=== PATIENT | female | born 1970 | race Caucasian/White ===

== ENCOUNTER 2016-05-11 16:42 | Inpatient (IN) | payer BC ==
--- NOTE | ~2016-05-11 | CN ---
Consultation Report [facility] [address] [place]. [address] NAME: JONAS ZHU : 74 STATUS : ADM IN PAT#: [id number] AGE: 46 ADM/REG DATE : 05/11/16 MR#: [id number] REPORT SERV DATE: 05/14/16 DICTATED BY: AKBAR ANTONIO DATE: 05/13/16 REPORT STATUS : Draft TRANSCRIBED BY: MODMars DATE: 05/13/16 DATE OF CONSULTATION: 05/13/2016 REQUESTING PHYSICIAN: Dr. Maxwell CHIEF COMPLAINT: Left forearm abscess. HISTORY OF PRESENT ILLNESS: A 46-year-old vpayv-[id number] white female, who has had a 3- week history of IV cocaine use she denies prior to that point. She has been going through a major situational depression, and she has turned to drugs for relief. She says she had difficulty finding veins, has used both arms but friend was able to find a vein about on Friday night in the left forearm, by Friday she was having swelling in the left arm. She came into the hospital. When she had a dizzy episode, she was admitted to Dr. Maxwell's service. Initially placed on vancomycin but that has been switched to Ancef and clindamycin, then changed again to Unasyn. The left forearm abscess is now developed from the original cellulitis. Of note, she has drug allergies to Keflex and sulfa which she reports difficulty breathing and face swelling. PAST MEDICAL HISTORY: Allergies to sulfa and Keflex. PAST SURGERIES: Breast augmentation, abdominoplasty, bladder sling, medical history of anxiety and depression. MEDICATIONS: Medications upon admission as per the home med list which include aspirin, Benadryl, doxycycline for acne, Prozac, and Advil. 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 Smokes less than half pack per day. Drinks alcohol rarely. Recent IV drug abuse as described above. PHYSICAL EXAMINATION: GENERAL: Shows a pleasant, cooperative, white female. HEENT: Normocephalic. Atraumatic. CHEST: Clear to auscultation. HEART: Regular rate and rhythm. ABDOMEN: Soft, nontender. EXTREMITIES: On the left forearm, she has a large volar abscess with surrounding cellulitis, but she can fully flex, fully extend the fingers, and flex in the elbow. On the right forearm, she has some superficial bruising consistent with multiple attempts at drug injections but no obvious abscess. REVIEW OF SYSTEMS: Positive for intermittent hypertension, positive for anxiety, positive for depression, positive for IV drug abuse. Denies history of heart disease, kidney disease, or liver disease. Consultation Report [place] [id number] [place]. [address] NAME: JONAS ZHU : 74 STATUS : ADM [facility]#: [id number] AGE: 46 ADM/REG DATE : 05/11/16 MR#: [id number] REPORT SERV DATE: 05/14/16 DICTATED BY: AKBAR ANTONIO DATE: 05/13/16 REPORT STATUS : Draft TRANSCRIBED BY: JESÚS DATE: 05/13/16 IMPRESSION: Left forearm abscess due to IV drug abuse with multiple drug allergies. PLAN: We will plan to take her to the operating room tomorrow for [place] of the left forearm possible Vac-Pac. We will also plan to get ID consult to help manage with all the different antibiotic allergies. MELBA/JESÚS Akbar Antonio M.D. / [id number] CC: Ulises Maxwell M.D.
--- NOTE | ~2016-05-11 | OP ---
Record Of Operation [facility] [address] [place]. [address] NAME: JONAS ZHU : 74 STATUS : ADM IN [facility]#: [id number] AGE: 46 ADM/REG DATE : 05/11/16 MR#: [id number] REPORT SERV DATE: 05/14/16 DICTATED BY: AKBAR ANTONIO DATE: 05/14/16 REPORT STATUS : Draft TRANSCRIBED BY: MODL DATE: 05/14/16 DATE OF PROCEDURE: 05/14/2016 PREOPERATIVE DIAGNOSIS: Left forearm abscess. POSTOPERATIVE DIAGNOSIS: Left forearm abscess. OPERATION PERFORMED: Irrigation and debridement of left forearm abscess and drain placement. SURGEON: Akbar Antonio M.D. TANK FARM OPERATOR: Mike Núñez. ANESTHESIA: General. TOURNIQUET TIME: 9 minutes. DRAINS: Hemovac x1. INDICATION FOR OPERATION: Please refer to my consult note. OPERATIVE FINDINGS: There is purulence in subcutaneous fat, no muscular fascia involvement was present. Thorough irrigation was performed with Pulsavac. I did not feel that the VAC pack necessary, but we did place a Hemovac drain which was removed on the floor. PROCEDURE IN DETAIL: The patient was taken to the operating room and placed on the operating table in supine position. Successful general anesthesia was given by the anesthesiologist. No extra antibiotics were given as she has just received vancomycin dose on the floor. Tourniquet was applied to left arm and secured with Steri-Drape. The left arm was then prepped with Betadine and draped in sterile routine fashion. Arm was elevated for five minute and tourniquet was inflated to 250 mmHg without exsanguination. A longitudinal approximately 7 cm incision was made over the volar aspect of the forearm, centered on the abscess. Dissection was carried down through the skin and subcutaneous tissue. Purulent fluid was obtained. This was cultured. Yankauer suction was then used to suck out the remaining purulence, some necrotic fat was then debrided with the tenotomy scissors. Finger dissection was performed to make sure there was no loculations present. The wound was then irrigated with 3 L normal saline solution with the Pulsavac irrigation system. A medium Hemovac drain was placed, then brought out distally. The tourniquet was let down. Hemostasis was good. The wound was closed with 3-0 Prolene mattress sutures. Sterile compressive dressing was applied. The drain was hooked up to the Hemovac suction and was taken to the recovery room in satisfactory condition. She tolerated the procedure well. DISPOSITION: We will plan to pull the drain on the floor in 24 to 48 hours. Infectious Disease consult is pending. Record Of Operation [place] [address] [address] NAME: JONAS ZHU : 74 STATUS : ADM IN [facility]#: [id number] AGE: 46 ADM/REG DATE : 05/11/16 MR#: [id number] REPORT SERV DATE: 05/14/16 DICTATED BY: AKBAR ANTONIO DATE: 05/14/16 REPORT STATUS : Draft TRANSCRIBED BY: JESÚS DATE: 05/14/16 MELBA/JESÚS Akbar Antonio M.D. / [id number] CC: Ben Alonzo M.D.
--- NOTE | ~2016-05-11 | DS ---
Discharge Summary [place] [address] [place]. [address] NAME: JONAS ZHU : 74 STATUS : DIS IN PAT#: [id number] AGE: 46 ADM/REG DATE : 05/11/16 MR#: [id number] REPORT SERV DATE: 05/21/16 DICTATED BY: ETHEL ALONZO DATE: 05/17/16 REPORT STATUS : Draft TRANSCRIBED BY: MODL DATE: 05/17/16 ADMISSION DATE: 05/11/2016 DISCHARGE DATE: 05/17/2016 DISCHARGE DIAGNOSES: 1. Methicillin-sensitive Staph aureus left arm abscess secondary to IV cocaine injection. 2. Uncontrolled pain associated with #1. 3. Uncontrolled hypertension. 4. Uncontrolled depression. 5. Uncontrolled anxiety. 6. Acute kidney injury, resolved. 7. Right forearm IV site thrombosis related to attempted cocaine injection thought to be sterile thrombophlebitis. OPERATIONS AND PROCEDURES: Irrigation and debridement of left forearm abscess and drain placement 05/14/2016, Dr. Hector Antonio. PRESENT ILLNESS: This is a 46-year-old white female who was triaged in the emergency room on 05/11/2016 at 1672 hours with complaints of swelling and redness in her arms after cocaine injection. Her admission vital signs were blood pressure 175/93, temp 98.4, pulse 104, respirations 20, and O2 saturation 100%. After evaluation in the emergency room, her diagnoses were cellulitis of left arm, IV drug abuse, and anxiety. She was referred to the Hospitalist Service. She was seen by Dr. Torrie Felder, admitted as described on admission history and physical examination. ADDITIONAL HISTORY: Per Dr. Felder. PHYSICAL EXAMINATION: Per Dr. Felder. ADMISSION LABORATORY: Per Dr. Felder. HOSPITAL COURSE: She was admitted by Dr. Felder with: 1. Left arm site cellulitis secondary to IV cocaine injection. 2. Bilateral breast cellulitis secondary to IV injection. 3. IV drug use. 4. Hypertension. 5. Severe anxiety disorder. 6. Major depression. She was admitted to [address] [place] [address]. Cultures were obtained. She was started on IV vancomycin. Her hospitalist care was assumed by Dr. Maxwell. On 05/13/2016, Dr. Maxwell thought she was developing a left arm abscess. Hand consultation was obtained, and that she was seen by Dr. Hector Antonio. His impression was left forearm abscess due to IV drug abuse with multiple drug allergies. He felt she should go to the OR Discharge Summary [place] [address] [place]. [address] NAME: JONAS ZHU : 74 STATUS : DIS IN PAT#: [id number] AGE: 46 ADM/REG DATE : 05/11/16 MR#: [id number] REPORT SERV DATE: 05/21/16 DICTATED BY: ETHEL ALONZO DATE: 05/17/16 REPORT STATUS : Draft TRANSCRIBED BY: MODL DATE: 05/17/16 for I and D. He also requested ID consultation. On 05/14/2016, she was taken to the OR where she had irrigation and debridement of left forearm abscess and drain placement. There was purulence in the subcutaneous fat with no muscular fascia involvement. A VAC pack was not thought to be necessary. A Hemovac drain was placed. She was seen postoperatively by Dr. Fuentes. Prior to him seeing her, her antimicrobial therapy had been changed from vancomycin to Unasyn, which he suggested continuing pending culture and sensitivity data. Her blood cultures done on admission were no growth. Her operative culture grew methicillin sensitive Staph aureus. When seen in followup by Dr. Antonio and Dr. Fuentes, it was felt that with her adequate incision and drainage, negative blood cultures, clinical improvement, and culture data as noted, she could be transitioned to oral antibiotics to complete an additional seven days with office followup. Consultation was obtained with Dr. Samuel because of her long-standing history of anxiety and depression. Dr. Samuel's diagnoses were: 1. Bipolar 2 disorder. 2. Polysubstance abuse. He recommended she seek outpatient psychiatric care for her mood disorder and other issues and that she continue her current Prozac dosing until this occurs. She was given the names of three local providers to see. She contacted one while hospitalized and has an outpatient appointment within one month. She developed some mild acute kidney injury with creatinine increasing from 0.79 on 05/11/2016 to 1.24 on 05/15/2016, which improved to 0.79 at the time of discharge. Her pre and postop pain required IV Dilaudid at times in escalating doses for control. By the time of discharge, her pain control had improved. Her blood pressure was elevated on admission. She had continued blood pressure elevations requiring p.r.n. hydralazine. She was transitioned to p.o. amlodipine with improved control. On 05/17/2016, it was felt she had achieved a level of improvement and stability where she could be safely discharged home. She will see Dr. Hector Antonio on 05/21/2016. An appointment was made for her to see Dr. Elodia Florian as a new patient. She will see Dr. Vic Morelos regarding her mood issues. She sees Dr. Francisco Bills on a regular basis. We will follow up with him. She will continue her home diet and activity. Discharge Summary [place] [address] [place] [address] NAME: JONAS ZHU : 74 STATUS : DIS IN PAT#: [id number] AGE: 46 ADM/REG DATE : 05/11/16 MR#: [id number] REPORT SERV DATE: 05/21/16 DICTATED BY: ETHEL ALONZO DATE: 05/17/16 REPORT STATUS : Draft TRANSCRIBED BY: JESÚS DATE: 05/17/16 Her home medications will be amlodipine 5 mg daily, Prozac 20 mg daily, Augmentin 875 after breakfast and supper for the next seven days. She will continue her home p.r.n. Advil and Benadryl. She takes fish oil, B12, silver supplement, vitamin C, and a probiotic. She was given Percocet 10/325 to take every four to six hours until Ortho followup on Friday. Discharge time greater than 30 minutes. DD/MODL Ethel Alonzo M.D. / [id number] CC: Nirav Mandujano M.D. Brian Smith, M.D. Subhash Virani, M.D. Adrienne N Harrington, M.D. Samuel Banks, M.D. Paul Cornea, M.D. Denis Kennedy, M.D. Tim Jennings, MD
--- NOTE | ~2016-05-11 | CN ---
Consultation Report [facility] [address] [place]. [address] NAME: JONAS ZHU : 74 STATUS : ADM IN PAT#: [id number] AGE: 46 ADM/REG DATE : 05/11/16 MR#: [id number] REPORT SERV DATE: 05/15/16 DICTATED BY: MIKE PACHECO DATE: 05/14/16 REPORT STATUS : Draft TRANSCRIBED BY: MODMars DATE: 05/14/16 INFECTIOUS DISEASE CONSULT DATE OF CONSULTATION: REASON FOR CONSULT: Left forearm abscess. HISTORY OF PRESENT ILLNESS: A 46 years old white lady with history of depression who was admitted for left forearm cellulitis. Apparently, she helped by a friend, tried to inject herself with cocaine in both forearms and breasts. She bought insulin needles. She did use the same needle for multiple sticks. They use bottled water. She did infect her skin. She injected cocaine. According to the H and P, she had subjective fever and chills as well as some headache, intermittent slurred speech, and left-sided numbness which was temporary. To me, she did not report any high fever. No acute shortness of breath or urinary symptoms. She had some nausea. No diarrhea. At the time of admission, she did not have any more left arm numbness. However, she had swelling over the left forearm. Dr. Hector Antonio was consulted who described volar abscess with surrounding cellulitis. No difficulty flexing the elbow. She had several small cords and bruises on the right forearm. Today, she went to the operating room and had I and D of the left forearm abscess. Apparently, no fascia or muscle was involved. Admission blood cultures were negative. Urine drug screen positive for opiates and cocaine. ADMISSION LABORATORY WORK: Creatinine 0.7, WBC 9, beta HCG was negative. CT of the brain without contrast, negative. Chest x-ray, no active disease. She has been afebrile. Last lab work done here yesterday creatinine 0.7, AST 56, WBC 8. PAST MEDICAL HISTORY: As I mentioned above plus she had breast implants and tummy tuck or abdominoplasty surgery. She sees Dr. Bills with Dermatology for acne, and she now is just picking at her skin. She has several scars and scabs over her face. She has been getting clindamycin and doxycycline in outpatient, more recently doxycycline. She saw Dr. Bar, in the past for positive hepatitis C antibodies but with further testing she was told she does not have active disease, also history of hypertension and kidney stones. She mentioned the CT in the past showing some maybe stones and maybe a lung spot but with further imaging by Dr. Maldonado Argueta, he apparently did not see any lung lesion. SOCIAL HISTORY: She is a smoker. 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 She reports never using IV drugs in the past but she did experiment with other forms in the past. ALLERGIES: SHE STATES SULFA AND KEFLEX CAUSED THROAT SWELLING AND EYELID SWELLING BUT THERE IS NO DIFFICULTY BREATHING ASSOCIATED. FAMILY HISTORY: Diabetes and hypertension. Consultation Report [address] [place]. [address] NAME: JONAS ZHU : 74 STATUS : ADM IN [facility]#: [id number] AGE: 46 ADM/REG DATE : 05/11/16 MR#: [id number] REPORT SERV DATE: 05/15/16 DICTATED BY: MIKE PACHECO DATE: 05/14/16 REPORT STATUS : Draft TRANSCRIBED BY: JESÚS DATE: 05/14/16 MEDICATIONS ON ADMISSION: Doxycycline, aspirin, Prozac. She took one Xanax, fish oil, vitamins, and some form of silver supplement. PHYSICAL EXAMINATION: GENERAL: Exam done in presence of Yun, registered nurse. The patient is a little sleepy but awake, talkative. HEENT: No oral mucosal lesion. She has scabs and scars over her face as I mentioned. LUNGS: Seem clear to auscultation. HEART: Regular rhythm. SKIN: She has bruises over the right breast. She has a linear left area at the base of the left neck. ABDOMEN: Abdomen is tight because of the prior abdominoplasty. EXTREMITIES: Hands without signs of emboli, right forearm with small cords and bruises as I mentioned. Left forearm is bandaged. Feet and lower legs without skin lesions. ASSESSMENT AND PLAN: 1. Left forearm abscess secondary to attempted IV drug injection status post surgical debridement today. 2. Reported allergies to sulfa and Keflex. She is currently on Unasyn. 3. Self-induced face lesions. Blood cultures for admission, surgical culture obviously is pending. I do not have a Gram stain yet. Continue Unasyn for now. She reports no history of Staph or MRSA infections. She reports no history of HIV or STD infections but she did agree with HIV screening. I discussed with the patient in presence of her nurse. JOHN/JESÚS Mike Pacheco M.D. / [id number] CC: Ben Alonzo M.D.
--- NOTE | ~2016-05-11 | HP ---
History And Physical [place] [id number] [facility] [place]. [address] NAME: JONAS ZHU : 74 STATUS : ADM IN [facility]#: [id number] AGE: 46 ADM/REG DATE : 05/11/16 MR#: [id number] REPORT SERV DATE: 05/11/16 DICTATED BY: ROSALINDA GARCIA DATE: 05/11/16 REPORT STATUS : Draft TRANSCRIBED BY: JESÚS DATE: 05/11/16 DATE OF ADMISSION: 05/11/2016 CHIEF COMPLAINT: Left upper extremity redness after IV injection. HISTORY OF PRESENT ILLNESS: This is a 46-year-old female with a past medical history of major depression and anxiety. Recently lost her mother several months ago. The patient states that she was trying to cope with her mother's passing and used IV cocaine for the first time three days ago. She purchased cocaine and allowed a friend to inject her with cocaine into both arms, right upper extremity and left upper extremity as well as several injections in both breast areas. The patient states that initially after injecting on the left upper extremity she had some redness of the arm that progressed, became worse, became more indurated. She has some subjective fever, chills, also today developed some headache as well as intermittent slurred speech and left-sided numbness that now has resolved. The patient also has high anxiety and states that she understand she made a mistake and should not do this again. She has been having generalized weakness. She has a sister who is currently at bedside assisting with history. She was seen in the ER by Dr. Hector Jovel, who got lab work and also ordered IV vancomycin and the Hospitalist Service was called to admit the patient to the hospital. The patient states she continues to have pain in the left upper extremity, burning-like sensation. She is able to mobilize and use her left upper extremity and currently no complaints of numbness at this time. The patient is very remorseful for what she has done and states that she has made a mistake and will not do this event again and wants to get better. REVIEW OF SYSTEMS: Please refer to HPI. PAST MEDICAL HISTORY: Major depression, anxiety, GERD, polysubstance abuse, hypertension. PAST SURGICAL HISTORY: Bilateral breast reduction with implants, bladder sling, liposuction, and tummy tucks. SOCIAL HISTORY: Positive tobacco abuse for approximately 10 years, half a pack. Denies any alcohol and has sniffed cocaine before in the past and also recently injected IV cocaine for the first time and has had used marijuana before in the past. 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 Unsure if the patient is currently employed at this time. FAMILY HISTORY: Type 2 diabetes, hypertension, CKD. ALLERGIES: TO KEFLEX AND SULFA. HOME MEDICATION LIST: Please refer to home med reconciliation per Pharmacy. PHYSICAL EXAMINATION: VITAL SIGNS: Temp is 98.4, blood pressure 175/93, with a pulse of 104, respiration of 20, saturating 100% on room air. History And Physical [address] [address] NAME: JONAS ZHU : 74 STATUS : ADM IN [facility]#: [id number] AGE: 46 ADM/REG DATE : 05/11/16 MR#: [id number] REPORT SERV DATE: 05/11/16 DICTATED BY: ROSALINDA GARCIA DATE: 05/11/16 REPORT STATUS : Draft TRANSCRIBED BY: JESÚS DATE: 05/11/16 GENERAL: The patient is alert and oriented x3. HEENT: Pupils equal, round, and reactive to light. Extraocular muscles are intact. Dry mucous membranes. SKIN: Macular patches of the facial areas and multiple injection sites and the right upper extremity and left upper extremity. Left upper extremity with induration and erythema from wrist to elbow. Multiple injections sites in the bilateral breast, approximately four to five injection sites in the right breast and two in the left breast with some mild erythema and bruising at injection areas. NECK: Supple. NEUROLOGIC: Cranial nerves II through XII grossly intact. Moves all four extremities. There are no neuro focal deficits. CARDIOVASCULAR: S1, S2. Regular rate and rhythm. No murmurs, rubs, or gallops. No JVD. RESPIRATORY: Clear to auscultation bilaterally. No wheezes or crackles. No signs of tachypnea. ABDOMEN: Positive bowel sounds. Soft, nontender. No rebound. No fluid wave with an old surgical scar. EXTREMITIES: 2+ pulse bilaterally. No edema of the lower extremity, but a positive edema of the left upper extremity with a positive radial pulses with a positive induration from wrist to elbow with erythema of the left upper extremity. LABORATORY DATA: Sodium 137, potassium 3.6, chloride 102, bicarb of 24, BUN of 13, creatinine 0.79, with a glucose of 84. T bilirubin of 0.7, alkaline phosphatase of 68, ALT of 25, AST of 17. White count of 9.2 with a hemoglobin of 13, platelet count of 192. ASSESSMENT AND PLAN: 1. Left arm cellulitis secondary to IV cocaine injection. 2. Some mild bilateral breast cellulitis secondary to IV drug injection. 3. IV drug usage. The patient educated on the risks and on cessation. 4. Hypertension. 5. Severe anxiety disorder. 6. Major depression. 7. The patient will be admitted with IV antibiotics and closely monitor. No signs of compartment syndrome at this time of the left upper extremity or chest area. Also, the patient will require to continue with her antianxiety medications for anxiety and recommend a Psychiatry consultation and also blood pressure management. The patient will be admitted to my colleague who will attend to this patient's care and also we will follow up with pending blood cultures. [facility]/JESÚS Rosalinda Garcia M.D. / [phone] History And Physical [address] [address] NAME: JONAS ZHU : 74 STATUS : ADM IN [facility]#: [id number] AGE: 46 ADM/REG DATE : 05/11/16 MR#: [id number] REPORT SERV DATE: 05/11/16 DICTATED BY: ROSALINDA GARCIA DATE: 05/11/16 REPORT STATUS : Draft TRANSCRIBED BY: JESÚS DATE: 05/11/16 CC: Ulises Maxwell M.D.
--- NOTE | ~2016-05-11 | CN ---
Consultation Report [facility] [address] [place]. [address] NAME: JONAS ZHU : 74 STATUS : ADM IN PAT#: [id number] AGE: 46 ADM/REG DATE : 05/11/16 MR#: [id number] REPORT SERV DATE: 05/15/16 DICTATED BY: DAMIAN BLUM DATE: 05/15/16 REPORT STATUS : Draft TRANSCRIBED BY: JESÚS DATE: 05/15/16 PSYCHIATRIC CONSULTATION DATE OF CONSULTATION: 05/15/2016 HISTORY OF PRESENT ILLNESS: She was admitted with cellulitis and abscess formation of her left forearm. This was caused by IV cocaine use. PAST PSYCHIATRIC HISTORY: She reported depressive episodes in recent years. She is currently taking Prozac 20 mg daily without apparent benefit. She also has had brief periods of high energy, optimism and high accomplishment. She has engaged in episodic substance abuse over the years. She has used substances such as cocaine and ecstasy. She also described a problem with compulsive skin picking. She described frequent obsessive worrying and rumination. 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 She has been and two times. She has three children. Her current boyfriend is an ed manager. FAMILY HISTORY: Her mother suffered from depression. She reported that two of her three children have either a mood issue or ADHD or both. MENTAL STATUS: She was awake and alert. Her mood was somewhat anxious. Her affect was appropriate. Her thinking was logical. She had no delusions. She had no hallucinations. She was oriented to time, place, and person. DIAGNOSES: 1. Bipolar 2 disorder. 2. Polysubstance abuse. RECOMMENDATIONS: She should seek outpatient psychiatric care for her mood disorder and other issues. I gave her the names of three local providers. I will sign off. DINA/JESÚS Damian Blum M.D. / [id number] CC: Ben Alonzo M.D.
[~2016-05-11 16:42] MED LIST: ADDERXR30 PO; ULTRAM50 PO
[2016-05-11 17:49] LABS: BASOPHILS 0.1 %; BASOPHILS ABSOLUTE 0.01 10/3/uL (0.0-0.16); EOSINOPHILS 1.6 %; EOSINOPHILS ABSOLUTE 0.15 10/3/uL (0.0-0.53); ER CBC TAT 0 Hrs 05 Mins; HEMATOCRIT 39.8 % (36.0-48.0); IMMATURE GRANULOCYTES 0.5 %; IMMATURE GRANULOCYTES ABSOLUTE 0.05 10/3/uL (0.0-0.11); LYMPHOCYTES 15.7 %; LYMPHOCYTES ABSOLUTE 1.45 10/3/uL (0.67-4.30); MEAN CORPUS HGB CONC 32.7 g/dL (32.0-36.0); MEAN CORPUSCULAR VOLUME 88.8 fL (80-100); MEAN PLATELET VOLUME 10.1 fL (9.2-13.0); MONOCYTES 6.5 %; NEUTROPHILS 75.6 %; NEUTROPHILS ABSOLUTE 6.98 10/3/uL (2.02-8.40); PLATELET COUNT 192 10/3/uL (150-400); RBC DISTRIBUTION WIDTH 13.6 % (12.0-16.0); RED CELL COUNT 4.48 10/6/uL (4.0-5.6); WHITE BLOOD CELLS 9.2 10/3/uL (4.5-10.5)
[2016-05-11 17:50] LABS: MANUAL DIFF NO %
[2016-05-11 18:06] LABS: A/G RATIO 1.1 (0.7-1.9); ALBUMIN 3.6 G/DL (3.5-5.0); ALKALINE PHOSPHATASE 68 U/L (45-117); BUN (BLOOD UREA NITROGEN) 13 MG/DL (6-23); CALCIUM, SERUM 8.8 MG/DL (8.5-10.4); CHLORIDE, SERUM 102 MMOL/L (96-112); CO2 (CARBON DIOXIDE) 24 MMOL/L (24-34); CREATININE 0.79 MG/DL (0.55-1.02); GFR AFRICAN AMERICAN 106 ML/MIN (>=60); GFR NON AFRICAN AMERICAN 91 ML/MIN (>=60); GLOBULIN 3.4 G/DL (2.5-4.1); GLUCOSE, SERUM 84 MG/DL (60-99); POTASSIUM, SERUM 3.6 MMOL/L (3.5-5.3); SGOT(AST) 17 U/L (5-40); SGPT(ALT) 25 U/L (5-65); SODIUM, SERUM 137 MMOL/L (135-148); TOTAL BILIRUBIN 0.7 MG/DL (0-1.2)
[2016-05-11] MEDS ORDERED: PROZAC PO (18:58)
[2016-05-11] MEDS ORDERED: XANAX PO (18:59)
[2016-05-11] MEDS ORDERED: MONODOX100 MG PO (18:59)
[2016-05-11] MEDS ORDERED: ADVIL PO (19:00)
[2016-05-11] MEDS ORDERED: ASAB PO (19:00)
[2016-05-11] MEDS ORDERED: BEN25 PO (19:01)
[2016-05-11] MEDS ORDERED: FISH OIL PO (19:04)
[2016-05-11] MEDS ORDERED: SILVER SUPPLEMENT PO (19:05)
[2016-05-11] MEDS ORDERED: VITAMIN C PO (19:05)
[2016-05-11] MEDS ORDERED: VITAMIN B-12 PO (19:05)
[2016-05-11] MEDS ORDERED: PROBIOTIC PO (19:06)
[2016-05-11 20:22] LABS: AMPHETAMINES (NOT ORD) NEG (NEG); BARBITURATES (NOT ORDERED NEG (NEG); BENZODIAZEPINES (NOT ORD) NEG (NEG); CANNABINOIDS (THC) NEG (NEG); COCAINE (NOT ORDERED) POS (NEG); OPIATES POS (NEG); PHENCYCLIDINE(PCP) NEG (NEG); TRICYCLICS NEG (NEG)
[2016-05-12 07:13] LABS: HEMOGLOBIN 11.4 g/dL (12.0-16.0); MEAN CORPUS HGB CONC 32.7 g/dL (32.0-36.0); MEAN CORPUSCULAR HEMOGLOB 28.8 pg (26.0-34.0); MEAN CORPUSCULAR VOLUME 88.1 fL (80-100); MEAN PLATELET VOLUME 9.7 fL (9.2-13.0); PLATELET COUNT 239 10/3/uL (150-400); RBC DISTRIBUTION WIDTH 13.8 % (12.0-16.0); RED CELL COUNT 3.96 10/6/uL (4.0-5.6)
[2016-05-12 07:24] LABS: HEMATOCRIT 34.9 % (36.0-48.0)
[2016-05-12 07:25] LABS: MANUAL DIFF YES %
[2016-05-12 07:31] LABS: ALKALINE PHOSPHATASE 70 U/L (45-117); BUN (BLOOD UREA NITROGEN) 12 MG/DL (6-23); CALCIUM, SERUM 7.9 MG/DL (8.5-10.4); CHLORIDE, SERUM 111 MMOL/L (96-112); CO2 (CARBON DIOXIDE) 24 MMOL/L (24-34); CREATININE 0.87 MG/DL (0.55-1.02); GFR AFRICAN AMERICAN 94 ML/MIN (>=60); GFR NON AFRICAN AMERICAN 81 ML/MIN (>=60); GLUCOSE, SERUM 135 MG/DL (60-99); POTASSIUM, SERUM 4.1 MMOL/L (3.5-5.3); SGOT(AST) 56 U/L (5-40); SGPT(ALT) 45 U/L (5-65); SODIUM, SERUM 145 MMOL/L (135-148)
[2016-05-12 07:32] LABS: ALBUMIN 2.7 G/DL (3.5-5.0); GLOBULIN 2.7 G/DL (2.5-4.1); TOTAL BILIRUBIN 0.2 MG/DL (0-1.2); TOTAL PROTEIN 5.4 G/DL (6.0-8.5)
[2016-05-12 07:56] LABS: BAND NEUTROPHILS 3 %; EOSINOPHILS 1 %; EOSINOPHILS ABSOLUTE (CALC) 0.08 10/3/uL (0.0-0.53); LYMPHOCYTES 24 %; LYMPHOCYTES ABSOLUTE (CALC) 1.92 10/3/uL (0.67-4.30); MONOCYTES 11 %; MONOCYTES ABSOLUTE (CALC) 0.88 10/3/uL (0.21-1.20); NEUTROPHILS ABSOLUTE (CALC) 5.12 10/3/uL (2.02-8.40); PLATELET ESTIMATE ADQ (ADEQUATE); RBC MORPHOLOGY NORM (NORMAL); SEGMENTED NEUTROPHIL (0) 61 %; TOTAL NUCLEATED CELLS 100
[2016-05-13 07:07] LABS: BASOPHILS 0.2 %; BASOPHILS ABSOLUTE 0.01 10/3/uL (0.0-0.16); EOSINOPHILS 6.2 %; EOSINOPHILS ABSOLUTE 0.36 10/3/uL (0.0-0.53); HEMATOCRIT 33.5 % (36.0-48.0); HEMOGLOBIN 11.2 g/dL (12.0-16.0); IMMATURE GRANULOCYTES 0.2 %; IMMATURE GRANULOCYTES ABSOLUTE 0.01 10/3/uL (0.0-0.11); LYMPHOCYTES 25.4 %; LYMPHOCYTES ABSOLUTE 1.47 10/3/uL (0.67-4.30); MEAN CORPUS HGB CONC 33.4 g/dL (32.0-36.0); MEAN CORPUSCULAR HEMOGLOB 29.2 pg (26.0-34.0); MEAN CORPUSCULAR VOLUME 87.5 fL (80-100); MEAN PLATELET VOLUME 9.7 fL (9.2-13.0); MONOCYTES 10.2 %; MONOCYTES ABSOLUTE 0.59 10/3/uL (0.21-1.20); NEUTROPHILS 57.8 %; NEUTROPHILS ABSOLUTE 3.34 10/3/uL (2.02-8.40); PLATELET COUNT 246 10/3/uL (150-400); RED CELL COUNT 3.83 10/6/uL (4.0-5.6); WHITE BLOOD CELLS 5.8 10/3/uL (4.5-10.5)
[2016-05-13 07:17] LABS: MANUAL DIFF NO %
[2016-05-13 07:27] LABS: ALBUMIN 2.5 G/DL (3.5-5.0); BUN (BLOOD UREA NITROGEN) 10 MG/DL (6-23); CALCIUM, SERUM 8.2 MG/DL (8.5-10.4); CHLORIDE, SERUM 108 MMOL/L (96-112); CO2 (CARBON DIOXIDE) 26 MMOL/L (24-34); CREATININE 0.75 MG/DL (0.55-1.02); GFR AFRICAN AMERICAN 112 ML/MIN (>=60); GFR NON AFRICAN AMERICAN 97 ML/MIN (>=60); GLUCOSE, SERUM 107 MG/DL (60-99); POTASSIUM, SERUM 4.3 MMOL/L (3.5-5.3); SODIUM, SERUM 143 MMOL/L (135-148)
[2016-05-14 04:41] LABS: BASOPHILS 0.1 %; BASOPHILS ABSOLUTE 0.01 10/3/uL (0.0-0.16); EOSINOPHILS 2.6 %; EOSINOPHILS ABSOLUTE 0.22 10/3/uL (0.0-0.53); HEMATOCRIT 36.7 % (36.0-48.0); HEMOGLOBIN 12.3 g/dL (12.0-16.0); IMMATURE GRANULOCYTES 0.1 %; IMMATURE GRANULOCYTES ABSOLUTE 0.01 10/3/uL (0.0-0.11); LYMPHOCYTES 22.5 %; LYMPHOCYTES ABSOLUTE 1.91 10/3/uL (0.67-4.30); MANUAL DIFF NO %; MEAN CORPUS HGB CONC 33.5 g/dL (32.0-36.0); MEAN CORPUSCULAR VOLUME 86.6 fL (80-100); MEAN PLATELET VOLUME 9.8 fL (9.2-13.0); MONOCYTES 6.8 %; MONOCYTES ABSOLUTE 0.58 10/3/uL (0.21-1.20); NEUTROPHILS 67.9 %; NEUTROPHILS ABSOLUTE 5.76 10/3/uL (2.02-8.40); PLATELET COUNT 314 10/3/uL (150-400); RBC DISTRIBUTION WIDTH 13.1 % (12.0-16.0); RED CELL COUNT 4.24 10/6/uL (4.0-5.6); WHITE BLOOD CELLS 8.5 10/3/uL (4.5-10.5)
[2016-05-15 04:42] LABS: BASOPHILS 0 %; EOSINOPHILS 0 %; HEMATOCRIT 34.2 % (36.0-48.0); HEMOGLOBIN 11.2 g/dL (12.0-16.0); LYMPHOCYTES 9.6 %; MEAN CORPUS HGB CONC 32.7 g/dL (32.0-36.0); MEAN CORPUSCULAR HEMOGLOB 28.9 pg (26.0-34.0); MEAN CORPUSCULAR VOLUME 88.4 fL (80-100); MEAN PLATELET VOLUME 9.8 fL (9.2-13.0); MONOCYTES 2.4 %; MONOCYTES ABSOLUTE 0.15 10/3/uL (0.21-1.20); NEUTROPHILS ABSOLUTE 5.53 10/3/uL (2.02-8.40); PLATELET COUNT 333 10/3/uL (150-400); RBC DISTRIBUTION WIDTH 13.6 % (12.0-16.0); RED CELL COUNT 3.87 10/6/uL (4.0-5.6); WHITE BLOOD CELLS 6.3 10/3/uL (4.5-10.5)
[2016-05-15 04:50] LABS: BUN (BLOOD UREA NITROGEN) 11 MG/DL (6-23); CALCIUM, SERUM 8.6 MG/DL (8.5-10.4); CHLORIDE, SERUM 109 MMOL/L (96-112); CO2 (CARBON DIOXIDE) 22 MMOL/L (24-34); CREATININE 1.24 MG/DL (0.55-1.02); GFR AFRICAN AMERICAN 61 ML/MIN (>=60); GFR NON AFRICAN AMERICAN 53 ML/MIN (>=60); POTASSIUM, SERUM 4.2 MMOL/L (3.5-5.3); SODIUM, SERUM 142 MMOL/L (135-148)
[2016-05-15 04:51] LABS: GLUCOSE, SERUM 315 MG/DL (60-99); MANUAL DIFF NO %
[2016-05-16 05:57] LABS: BASOPHILS 0.3 %; BASOPHILS ABSOLUTE 0.03 10/3/uL (0.0-0.16); EOSINOPHILS 1.6 %; EOSINOPHILS ABSOLUTE 0.15 10/3/uL (0.0-0.53); HEMOGLOBIN 11.4 g/dL (12.0-16.0); IMMATURE GRANULOCYTES 0.5 %; IMMATURE GRANULOCYTES ABSOLUTE 0.05 10/3/uL (0.0-0.11); LYMPHOCYTES 35.7 %; LYMPHOCYTES ABSOLUTE 3.32 10/3/uL (0.67-4.30); MEAN CORPUS HGB CONC 32.6 g/dL (32.0-36.0); MEAN CORPUSCULAR HEMOGLOB 28.6 pg (26.0-34.0); MEAN CORPUSCULAR VOLUME 87.9 fL (80-100); MEAN PLATELET VOLUME 9.7 fL (9.2-13.0); MONOCYTES 5.4 %; NEUTROPHILS 56.5 %; NEUTROPHILS ABSOLUTE 5.24 10/3/uL (2.02-8.40); PLATELET COUNT 359 10/3/uL (150-400); RBC DISTRIBUTION WIDTH 13.7 % (12.0-16.0); RED CELL COUNT 3.98 10/6/uL (4.0-5.6)
[2016-05-16 06:04] LABS: MANUAL DIFF NO %; WHITE BLOOD CELLS 9.3 10/3/uL (4.5-10.5)
[2016-05-16 06:32] LABS: BUN (BLOOD UREA NITROGEN) 10 MG/DL (6-23); CALCIUM, SERUM 8.3 MG/DL (8.5-10.4); CHLORIDE, SERUM 104 MMOL/L (96-112); CO2 (CARBON DIOXIDE) 25 MMOL/L (24-34); CREATININE 0.79 MG/DL (0.55-1.02); GFR AFRICAN AMERICAN 106 ML/MIN (>=60); GFR NON AFRICAN AMERICAN 91 ML/MIN (>=60); GLUCOSE, SERUM 124 MG/DL (60-99); POTASSIUM, SERUM 3.6 MMOL/L (3.5-5.3); SODIUM, SERUM 141 MMOL/L (135-148)
[2016-05-17] MEDS ORDERED: AUG875 PO (10:59)
[2016-05-17] MEDS ORDERED: PERCOCET 10/3251 TAB PO (11:00)
[2016-05-17] MEDS ORDERED: NORV5 PO (11:01)
== END 2016-05-17 14:37 | disposition home or self-care (01) | DRG 571 ==
LOC: ER 16:42 → 6NO 20:03
PROVIDERS: Emergency Medicine; Internal Medicine; Orthopaedic Surgery Hand Surgery
PROC: 0X9 Anatomical Regions, Upper Extremities, Drainage (ICD-10-PCS; 2016-05-14)
PROC: 0JBH0ZZ Excision of Left Lower Arm Subcutaneous Tissue and Fascia, Open Approach (ICD-10-PCS; principal; 2016-05-14 15:45)
DX: L02.414 Cutaneous abscess of left upper limb (principal); N17.9 Acute kidney failure, unspecified; F31.81 Bipolar II disorder; L03.114 Cellulitis of left upper limb; F41.9 Anxiety disorder, unspecified; K21.9 Gastro-esophageal reflux disease without esophagitis; F42.9 Obsessive-compulsive disorder, unspecified; R73.9 Hyperglycemia, unspecified; B95.61 Methicillin susceptible Staphylococcus aureus infection as the cause of diseases classified elsewhere; N61.0 Mastitis without abscess; F17.210 Nicotine dependence, cigarettes, uncomplicated; F14.188 Cocaine abuse with other cocaine-induced disorder; Z82.49 Family history of ischemic heart disease and other diseases of the circulatory system; Z84.1 Family history of disorders of kidney and ureter; Z88.2 Allergy status to sulfonamides; Z88.8 Allergy status to other drugs, medicaments and biological substances; Z81.8 Family history of other mental and behavioral disorders; Z83.3 Family history of diabetes mellitus; Z88.1 Allergy status to other antibiotic agents; Z87.442 Personal history of urinary calculi
CPT/HCPCS: 70450; 71010; 73130-LT; 80048; 80053; 80069; 80305; 84100; 84703; 85025; 87015; 87040; 87070; 87075; 87077; 87102; 87116; 87186; 87205; 87389; 93005; 96374; 99285; A9270-GY; J0295; J0360; J0878; J1170; J1885; J2250; J2405; J3010; J3370